=== PATIENT | male | born 1965 | race Caucasian/White ===

== ENCOUNTER 2023-03-21 12:50 | Outpatient (OUT) | payer MEDICARE, MEDICAID, SELFPAY ==
[2023-03-21 14:31] LABS: INR 0.97; Prothrombin Time 10.3 sec (9.0-11.6)
== END 2023-03-21 12:51 | disposition home or self-care (01) ==
LOC: PST 12:55
PROVIDERS: Visit Provider Urology
DX: Z01.812 Encounter for preprocedural laboratory examination (principal); I25.10 Atherosclerotic heart disease of native coronary artery without angina pectoris; F32.A Depression, unspecified; I10 Essential (primary) hypertension; N20.1 Calculus of ureter
CPT/HCPCS: 36415; 85610; 85730

== ENCOUNTER 2023-03-22 10:56 | Day surgery (SDC) | payer MEDICARE, MEDICAID, SELFPAY ==
[2023-03-21 15:51] VITALS: BP 150/102; PULSE 67; RESP 20; TEMP 36.2; O2SAT 100; BMI 34.5
[2023-03-22] VITALS (11 sets, daily range): BP systolic 132–155; BP diastolic 78–105; PULSE 65–80; RESP 10–20; TEMP 36.2; O2SAT 94–100; BMI 33.6
[2023-03-22] MEDS: LACTATED RINGER'S SOLUTION 1,000 ML 50 ML IV ×2 (11:24→15:30)
[2023-03-22] MEDS: CEFAZOLIN SODIUM/DEXTROSE,ISO 1 GM/50 ML IV.SOLN IV (13:41)
--- NOTE | 2023-03-22 15:21 | PM.URSON ---
Urology Surgery Operative Note Operative Note Procedure Date: 03/22/23 Time Out Performed: yes Pre-op Diagnosis: retained 3 mm right ureteral calculus Post-op Diagnosis: other (same plus impacted ureteral calculus and right ureteral stricture) Procedures performed: #1. Cystoscopy. #2. Right rigid ureteral dilation. #3. Right ureteroscopy. #4. Holmium laser lithotripsy of right ureteral calculus. #5. Stone basket extraction. #6. Right pyeloscopy. #7. Holmium laser lithotripsy of right renal calculus. #8. Placement of 6 [place] variable lenngth right ureteral stent. Anesthesia: General-LMA Primary Surgeon: Cirilo Collier Complications: none Estimated blood loss (mL): 5 Findings: #1. Impacted right ureteral calculus. #2.right ureteral stricture at L3.#3. Ureteral jag stone Specimens: right ureteral calculus Indications for Procedures: this gentleman has had a 3 mm right ureteral calculus that he has been unable to pass for several weeks. He now presents for cystoscopy right stent placement and possible definitive stone manipulation. He has signed an informed consent for these procedures after risks were explained. He understands some of these risks are bleeding, infection, anesthesia, damage to the ureter, risk of ureteral stricture and possible need for further procedures just to name a few. Detailed description of Procedure: The patient was brought to the operating room and placed on the operating room table in the supine position. SCDs were placed on the lower extremities and turned on and functioning during the entire case. Timeout was done by all parties in the room. We all agreed upon the patient's identification and the planned procedures for this patient. Genn. anesthesia was then administered. The patient was then repositioned into the modified dorsal lithotomy position. All pressure points were satisfactorily padded. Genitalia were sterilely prepped and draped in usual fashion.I started by passing a 22 [place] Olympus cystoscope per urethra and into the bladder. Anterior urethra was normal. Prostatic urethra had a high median lobe. Panendoscopy in the bladder showed no evidence of any tumors or stones. I then passed a Glidewire through the scope and cannulated the right ureter. The wire went up and did arrived at the visible stone by fluoroscopy which was located at the L3 level. I was able to get the wire beyond the stone into the kidney. I then used a 8 and 10 [place] rigid dilator to dilate the distal ureter. I then removed the cystoscope and passed a navigator 06/18 ureteral access sheath over the wire and further dilated the ureter. I was able to get this sheath up to the L5 level.the wire and stylette were then removed. I then passed a flexible ureteroscope through the sheath and got into the ureter. I ascended up to the stone. One could see that the stone was a jag stone with a pointed Horn protruding laterally and actually tearing into the ureteral wall. Another pointed Horn was protruding to the [place] and similarly tearing into the wall of the ureter. I then passed a 200 ? holmium laser fiber through the scope and made contact with the stone. At 6 W continuous, I then slowly in a staccato manner fragmented the stone into a few pieces. I then used a 0 tip nitinol basket and engaged pieces and extracted them down and out. These were sent for stone analysis. There was a stricture within the ureter immediately distal to the stone. I was able to get the ureteroscope through this but this was a bit indurated. I then scoped proximally and into the kidney and found another stone which was at least a centimeter in size. I used the laser and I dusted this stone. A guidewire was passed through the scope into the kidney and the scope was removed. The access sheath was then removed. I then backloaded the cystoscope over the wire and passed it into the bladder. I then slid a 6 [place] variable length ureteral stent over the wire and up into the kidney. The wire was removed and there were good curls in the kidney and in the bladder. The bladder was drained of its contents and the scope was then removed. He was then transferred to a [facility] bed and wheeled to PACU in stable condition. He'll be discharged to home later today with a prescription for Vesicare and Keflex. The stent will stay in for at least 3 weeks.
[2023-03-22] MEDS: SOLIFENACIN SUCCINATE 10 MG TABLET PO (16:00)
[2023-04-02 18:07] LABS: Calcium Oxalate Monohydrate 30 % (.); Calcium phosphate (hydroxyl) 70 % (.)
== END 2023-03-22 16:40 | disposition home or self-care (01) ==
PROVIDERS: Visit Provider Urology
PROC: (CPT 918; principal; 2023-03-22 11:50)
DX: N20.1 Calculus of ureter (principal); I25.10 Atherosclerotic heart disease of native coronary artery without angina pectoris; I10 Essential (primary) hypertension; F32.A Depression, unspecified; N40.1 Benign prostatic hyperplasia with lower urinary tract symptoms; E66.9 Obesity, unspecified; Z68.33 Body mass index [BMI] 33.0-33.9, adult; G47.33 Obstructive sleep apnea (adult) (pediatric); N41.9 Inflammatory disease of prostate, unspecified; N48.9 Disorder of penis, unspecified; N32.81 Overactive bladder
CPT/HCPCS: 52356; 76000; 82365; 99999; C1874; J2704

== ENCOUNTER 2023-11-28 12:05 | Outpatient (OUT) | payer MEDICARE, MEDICAID, SELFPAY ==
--- NOTE | 2023-11-28 12:12 | XR_ITS ---
The [address] [address] Patient Name: JAPSAL ROWLEY MRN: [id number] date: 1965 Sex: M Assigned Patient Location: [facility] Current Patient Location: Accession/Order Number: [id number] Exam Date: 11/28/2023 12:15 Report Date: 11/29/2023 07:28 At the request of: ANDREW WAGONER Procedure: XR abdomen 1V EXAMINATION: XR abdomen 1V HISTORY: calculus of kidney N20.0 ; right flank abdominal pain; history of kidney stones COMPARISON: XR pelvis 05/20/2018 FINDINGS: KIDNEY/URETER - RIGHT: No visible renal or ureteral calcifications. KIDNEY/URETER - LEFT: No visible renal or ureteral calcifications. PELVIS: No visible ureteral stones. Stable small calcification within lower left pelvis compatible with a phlebolith. BOWEL: No abnormal dilation or deviation. BONES: Stable, chronic bone beaking along right cephalad margin of pubis symphysis. Multilevel moderate-marked degenerative disc disease of lumbar spine. OTHER: Negative. No abnormal gaseous collections. XR/XR abdomen 1V IMPRESSION: 1. No appreciable urinary tract calculi. Electronically authenticated by: DEIDRE OLIVAS Date: 11/29/2023 07:28
== END 2023-11-28 12:06 | disposition home or self-care (01) ==
LOC: RAD 12:07
PROVIDERS: Visit Provider Urology
DX: N20.0 Calculus of kidney (principal)
CPT/HCPCS: 74018

== ENCOUNTER 2024-02-04 13:56 | Outpatient (OUT) | payer MEDICARE, MEDICAID, SELFPAY ==
--- NOTE | 2024-02-04 15:29 | PM.CN ---
Consult Note: HPI Data of Consult Patient: new to practice Consult date: 02/04/24 Requesting Physician: Sharon Bates MD Primary Care Provider: Non-Staff Physician, Consult Narrative Reason for consult: low back, right leg pain Narrative: 58yom who presents for evaluation. longstanding history of low back and right leg pain. imaging reviewed, which is significant for multilevel moderate to severe stenosis, from L2 down to S1. also multilevel facet arthropathy noted. has completed physical therapy and continues in provider directed home exercise program >6 weeks, without lasting benefit. uses baclofen, diclofenac. allergic to many different medications, including gabapentin. cc:: CC: Sharon Bates MD Review of Systems ROS Status of ROS 10 or more systems reviewed and unremarkable except as noted in history and below [facility] Medical History Carpal tunnel syndrome ?G56.00 - Carpal tunnel syndrome, unspecified upper limb (ICD-10) Syncope ?R55 - Syncope and collapse (ICD-10) Left knee pain ?M25.562 - Pain in left knee (ICD-10) Left foot pain ?M79.672 - Pain in left foot (ICD-10) Cold sweat ?R68.89 - Other general symptoms and signs (ICD-10) Ureteral stone ?N20.1 - Calculus of ureter (ICD-10) Tendon nodule ?M67.90 - Unspecified disorder of synovium and tendon, unspecified site (ICD-10) Smoker ?F17.200 - Nicotine dependence, unspecified, uncomplicated (ICD-10) Restless leg ?G25.81 - Restless legs syndrome (ICD-10) Rectal bleeding ?K62.5 - Hemorrhage of anus and rectum (ICD-10) Prostatitis ?N41.9 - Inflammatory disease of prostate, unspecified (ICD-10) Penile lump ?N48.89 - Other specified disorders of penis (ICD-10) Penile lesion ?N48.9 - Disorder of penis, unspecified (ICD-10) SAMANTHA (obstructive sleep apnea) ?G47.33 - Obstructive sleep apnea (adult) (pediatric) (ICD-10) Orchitis ?N45.2 - Orchitis (ICD-10) Obesity ?E66.9 - Obesity, unspecified (ICD-10) OAB (overactive bladder) ?N32.81 - Overactive bladder (ICD-10) Nightmares ?F51.5 - Nightmare disorder (ICD-10) Nausea and vomiting after administration of anesthetic agent ?T88.59XA - Other complications of anesthesia, initial encounter (ICD-10) ?R11.2 - Nausea with vomiting, unspecified (ICD-10) Multiple lipomas ?D17.9 - Benign lipomatous neoplasm, unspecified (ICD-10) Major depressive disorder ?F32.9 - Major depressive disorder, single episode, unspecified (ICD-10) Lumbar pain ?M54.50 - Low back pain, unspecified (ICD-10) PTSD (post-traumatic stress disorder) ?F43.10 - Post-traumatic stress disorder, unspecified (ICD-10) Left shoulder pain ?M25.512 - Pain in left shoulder (ICD-10) Right knee DJD ?M17.11 - Unilateral primary osteoarthritis, right knee (ICD-10) Left knee DJD ?M17.12 - Unilateral primary osteoarthritis, left knee (ICD-10) Kidney stones ?N20.0 - Calculus of kidney (ICD-10) Irritable bowel ?K58.9 - Irritable bowel syndrome without diarrhea (ICD-10) Insomnia ?G47.00 - Insomnia, unspecified (ICD-10) Gross hematuria ?R31.0 - Gross hematuria (ICD-10) Abdominal pain ?R10.9 - Unspecified abdominal pain (ICD-10) Fall ?W19.XXXA - Unspecified fall, initial encounter (ICD-10) Erectile dysfunction ?N52.9 - Male erectile dysfunction, unspecified (ICD-10) Diverticulosis ?K57.90 - Diverticulosis of intestine, part unspecified, without perforation or abscess without bleeding (ICD-10) CAD (coronary artery disease) ?I25.10 - Atherosclerotic heart disease of [place] coronary artery without angina pectoris (ICD-10) Constipation ?K59.00 - Constipation, unspecified (ICD-10) Colon polyp ?K63.5 - Polyp of colon (ICD-10) Heartburn ?R12 - Heartburn (ICD-10) CKD (chronic kidney disease) ?N18.9 - Chronic kidney disease, unspecified (ICD-10) GERD (gastroesophageal reflux disease) ?K21.9 - Gastro-esophageal reflux disease without esophagitis (ICD-10) Chest pain ?R07.9 - Chest pain, unspecified (ICD-10) Cervical disc disorder ?M50.90 - Cervical disc disorder, unspecified, unspecified cervical region (ICD-10) Bloating ?R14.0 - Abdominal distension (gaseous) (ICD-10) Hypertension ?I10 - Essential (primary) hypertension (ICD-10) Basal cell carcinoma ?C44.91 - Basal cell carcinoma of skin, unspecified (ICD-10) Surgical History History of uvulopalatopharyngoplasty ?Z98.890 - Other specified postprocedural states (ICD-10) History of total knee arthroplasty ?Z96.659 - Presence of unspecified artificial knee joint (ICD-10) H/O cystoscopy ?Z98.890 - Other specified postprocedural states (ICD-10) H/O arthroscopy of shoulder ?Z98.890 - Other specified postprocedural states (ICD-10) History of arthroscopic knee surgery ?Z98.890 - Other specified postprocedural states (ICD-10) History of heart artery stent ?Z95.5 - Presence of coronary angioplasty implant and graft (ICD-10) H/O colonoscopy ?Z98.890 - Other specified postprocedural states (ICD-10) H/O esophagogastroduodenoscopy ?Z98.890 - Other specified postprocedural states (ICD-10) Family History Other Family history of CHF (congestive heart failure) Family history of COPD (chronic obstructive pulmonary disease) Family history of cancer Family history of diabetes mellitus Family history of hypertension Family history of myocardial infarction Family history of stroke Social History (Updated 03/21/23 @ 13:18 by Linnea Man RN) Within the past year, how often did you have a drink containing alcohol: monthly or less Within the past year, how many standard drinks containing alcohol did you have on a typical day: 1 or 2 Total score: 0 Score interpretation: A score less than 4 is consistent with normal alcohol consumption. Smoking status: Heavy tobacco smoker Second hand tobacco smoke exposure: Yes Non-prescribed substance use: cannabis (any form) Non-prescribed substance use details: MARIJUANA WEEKLY Previous occupational history: DISABILITY Known occupational exposures/hazards: No Highest level of school completed/degree received: high school graduate Meds Home Medications and Allergies Home Medications ?Medication ?Instructions ?Recorded ?Confirmed ?Type Fiber-Tabs 1 tab PO BID 03/21/23 03/22/23 History amoxicillin 500 mg capsule 500 mg PO QID 03/21/23 03/22/23 History aspirin 81 mg tablet 81 mg PO DAILY 03/21/23 03/22/23 History carvedilol 25 mg tablet 25 mg PO BID 03/21/23 03/22/23 History dexlansoprazole 60 mg 60 mg PO DAILY 03/21/23 03/22/23 History capsule,biphase delayed release (Dexilant) diclofenac sodium 50 mg 50 mg PO BID 03/21/23 03/22/23 History tablet,delayed release dicyclomine 10 mg capsule 10 mg PO QID PRN pain 03/21/23 03/22/23 History ginseng 100 mg capsule 100 mg PO DAILY 03/21/23 03/22/23 History irbesartan 300 mg tablet (Avapro) 300 mg PO DAILY 03/21/23 03/22/23 History mirabegron 25 mg tablet,extended 25 mg PO DAILY 03/21/23 03/22/23 History release 24 hr (Myrbetriq) multivitamin,db-xrnm-Bf-FA-min 1 tab PO DAILY 03/21/23 03/22/23 History nitroglycerin 0.4 mg sublingual 0.4 mg sublingual Q5M 03/21/23 03/22/23 History tablet omega-3 fatty acids 1,000 mg PO DAILY 03/21/23 03/22/23 History ondansetron HCl 4 mg tablet 4 mg PO Q8H PRN nausea and vomiting 03/21/23 03/22/23 History ranolazine 500 mg tablet,extended 500 mg PO BID 03/21/23 03/22/23 History release,12 hr ropinirole 0.5 mg tablet 0.5 mg PO DAILY 03/21/23 03/22/23 History tamsulosin 0.4 mg capsule 0.4 mg PO DAILY 03/21/23 03/22/23 History vitamin E 268 mg (400 unit) capsule 268 mg PO DAILY 03/21/23 03/22/23 History cephalexin 500 mg capsule 500 mg PO DAILY 30 days #30 caps 03/22/23 Rx solifenacin 10 mg tablet (Vesicare) 10 mg PO DAILY #30 tabs 03/22/23 Rx Allergies Allergy/AdvReac Type Severity Reaction Status Date / Time bupropion [From Wellbutrin] AdvReac Mild UNKNOWN Verified 03/21/23 13:24 hydralazine AdvReac Mild DIARRHEA Verified 03/21/23 13:24 isosorbide [From Imdur] AdvReac Mild HEADACHE Verified 03/21/23 13:24 morphine AdvReac Mild Headache Verified 03/21/23 13:24 DILAUDID AdvReac Mild NAUSEA AND Uncoded 03/21/23 13:24 VOMITING RED DYE AdvReac Mild GI DISTRESS Uncoded 03/21/23 13:24 VICODIN AdvReac Mild DIAPHORESIS Uncoded 03/21/23 13:24 Exam Narrative Exam Narrative: Psych-alert and oriented x 3. Attentive and appropriate, constitutionally normal, displays normal mood and affect per situation. There are no obvious deficits in memory, reasoning, or intellect.? Skin-no obvious rashes, bruising, erythema noted to the patient's area of pain.? Extremities- extremities are warm with minimal edema and palpable pulses. Lumbar-tenderness to palpation noted in the lumbar spine and paraspinal musculature. Pain is elicited with flexion, extension, and lateral rotation of the lumbar spine. Range of motion is diminished with these motions. Facet loading maneuvers are positive.? Strength-noted to be unremarkable with the exception of decreased strength rated at 4 out of 5 in right quadriceps femoris, anterior tibialis. Sensory-no notable sensory deficits in the bilateral lower extremities to touch or pinprick in all dermatomal distributions with the exception to decreased sensation to the right L2, 3, 4, 5 dermatomal distribution Coordination remains intact.? Gait remains non-antalgic. Assessment and Plan Assessment and Plan (1) Lumbar stenosis with neurogenic claudication: (2) Lumbar spondylosis: Plan 58yom who presents for evaluation. failed conservative measures, as noted. imaging reviewed, as noted. given symptoms and imaging, prudent to attempt right l4-5, l5-s1 transforaminal epidural steroid injection under fluoroscopic guidance. may even benefit from right l2-3, l3-4 transforaminal epidural steroid injection, depending on response. he is in agreement. meds reviewed, no changes. endorses marijuana use. follow up after procedure.
== END 2024-02-04 13:57 | disposition home or self-care (01) ==
LOC: PM 13:56
PROVIDERS: Visit Provider Anesthesiology
DX: M48.062 Spinal stenosis, lumbar region with neurogenic claudication (principal); M47.816 Spondylosis without myelopathy or radiculopathy, lumbar region
CPT/HCPCS: G0463

== ENCOUNTER 2024-02-25 10:21 | Day surgery (SDC) | payer MEDICARE, MEDICAID, SELFPAY ==
[2024-02-25 11:12] VITALS: BP 139/95; PULSE 79; TEMP 36.4; O2SAT 99
[2024-02-25 11:39] VITALS: BP 145/73; PULSE 77; O2SAT 93
[2024-02-25 11:41] VITALS: BP 152/85; PULSE 80; O2SAT 95
--- NOTE | 2024-02-25 11:42 | P.ON_ITS ---
Date of procedure: 02/25/24 Pre-op diagnosis: Pain due to lumbar stenosis with neurogenic claudication Post-op diagnosis: same as pre-op Procedure: Procedure: Right L4-5, L5-S1 transforaminal epidural steroid injection Medications: Bupivacaine 0.25% 2cc, lidocaine 2% 1cc, kenalog 80mg The patient was seen and examined in the preoperative holding area.? Informed consent was obtained and placed on the chart.? Patient was brought to the medical procedure unit and placed in the prone position where a timeout was completed verifying the correct patient, procedure site, position, and planned special equipment using sterile aseptic technique.? Under direct fluoroscopic visualization a 25-gauge Qu[place]ke tipped spinal needle was advanced to the designated neural foramen where contrast dye was injected to show adequate spread.? The needle was inserted at level right L4-5. There was no evidence of vascular or adverse uptake.? Epidural spread was appreciated.? The above- mentioned injectate was then placed in a 1.5 mL aliquot preceded by negative aspiration.? The needle was removed. The needle was inserted and the procedure repeated at level right L5-S1.? The surgery site was covered.? Patient was taken to the postprocedural recovery area and monitored for an appropriate length of time before found suitable for discharge in the accompaniment of a responsible adult. Anesthesia: Local Surgeon: Sharon Bates Pathology: none sent Condition: stable Disposition: no change
[2024-02-25] MEDS: BUPIVACAINE HCL 0.25% PF 25 MG/10 ML VIAL INJ (11:43)
[2024-02-25] MEDS: 0.9 % SODIUM CHLORIDE 10 ML SYRINGE - SALINE FLUSH INJ (11:43)
[2024-02-25] MEDS: LIDOCAINE HCL 2% 400 MG/20 ML MDV 3 ML INJ (11:44)
[2024-02-25] MEDS: IOHEXOL 240 MG/ML - 10 ML VIAL 24 MG INJ (11:44)
[2024-02-25] MEDS: TRIAMCINOLONE ACETONIDE 40 MG/ML VIAL 80 MG INJ (11:44)
== END 2024-02-25 11:47 | disposition home or self-care (01) ==
PROVIDERS: Visit Provider Anesthesiology
DX: M48.062 Spinal stenosis, lumbar region with neurogenic claudication (principal); R52 Pain, unspecified
CPT/HCPCS: 64483; 64484; J0665; J3301; Q9966

== ENCOUNTER 2024-03-06 14:42 | Outpatient (OUT) | payer MEDICARE, MEDICAID, SELFPAY ==
--- NOTE | 2024-03-06 15:56 | P.CN_ITS ---
Consult Note: HPI Data of Consult Patient: known to practice within the last 3 years Consult date: 02/04/24 Requesting Physician: Liza Schumacher NP Primary Care Provider: Non-Staff Physician, Consult Narrative Reason for consult: low back, right leg pain Narrative: 58yom who presents for evaluation. longstanding history of low back and right leg pain. imaging reviewed, which is significant for multilevel moderate to severe stenosis, from L2 down to S1. also multilevel facet arthropathy noted. has completed physical therapy and continues in provider directed home exercise program >6 weeks, without lasting benefit. uses baclofen, diclofenac. allergic to many different medications, including gabapentin. Recent right L4/5 L5/S1 TFESI providing no relief. cc:: CC: Liza Schumacher NP Review of Systems ROS Status of ROS 10 or more systems reviewed and unremark able except as noted in history and below Musculoskeletal Reports: back pain, neck pain and extremity pain PFSH [facility] Medical History (Updated 02/04/24 @ 15:32 by Sharon Bates MD) Carpal tunnel syndrome ?G56.00 - Carpal tunnel syndrome, unspecified upper limb (ICD-10) Syncope ?R55 - Syncope and collapse (ICD-10) Left knee pain ?M25.562 - Pain in left knee (ICD-10) Left foot pain ?M79.672 - Pain in left foot (ICD-10) Cold sweat ?R68.89 - Other general symptoms and signs (ICD-10) Ureteral stone ?N20.1 - Calculus of ureter (ICD-10) Tendon nodule ?M67.90 - Unspecified disorder of synovium and tendon, unspecified site (ICD- 10) Smoker ?F17.200 - Nicotine dependence, unspecified, uncomplicated (ICD-10) Restless leg ?G25.81 - Restless legs syndrome (ICD-10) Rectal bleeding ?K62.5 - Hemorrhage of anus and rectum (ICD-10) Prostatitis ?N41.9 - Inflammatory disease of prostate, unspecified (ICD-10) Penile lump ?N48.89 - Other specified disorders of penis (ICD-10) Penile lesion ?N48.9 - Disorder of penis, unspecified (ICD-10) SAMANTHA (obstructive sleep apnea) ?G47.33 - Obstructive sleep apnea (adult) (pediatric) (ICD-10) Orchitis ?N45.2 - Orchitis (ICD-10) Obesity ?E66.9 - Obesity, unspecified (ICD-10) OAB (overactive bladder) ?N32.81 - Overactive bladder (ICD-10) Nightmares ?F51.5 - Nightmare disorder (ICD-10) Nausea and vomiting after administration of anesthetic agent ?T88.59XA - Other complications of anesthesia, initial encounter (ICD-10) ?R11.2 - Nausea with vomiting, unspecified (ICD-10) Multiple lipomas ?D17.9 - Benign lipomatous neoplasm, unspecified (ICD-10) Major depressive disorder ?F32.9 - Major depressive disorder, single episode, unspecified (ICD-10) Lumbar pain ?M54.50 - Low back pain, unspecified (ICD-10) PTSD (post-traumatic stress disorder) ?F43.10 - Post-traumatic stress disorder, unspecified (ICD-10) Left shoulder pain ?M25.512 - Pain in left shoulder (ICD-10) Right knee DJD ?M17.11 - Unilateral primary osteoarthritis, right knee (ICD-10) Left knee DJD ?M17.12 - Unilateral primary osteoarthritis, left knee (ICD-10) Kidney stones ?N20.0 - Calculus of kidney (ICD-10) Irritable bowel ?K58.9 - Irritable bowel syndrome without diarrhea (ICD-10) Insomnia ?G47.00 - Insomnia, unspecified (ICD-10) Gross hematuria ?R31.0 - Gross hematuria (ICD-10) Abdominal pain ?R10.9 - Unspecified abdominal pain (ICD-10) Fall ?W19.XXXA - Unspecified fall, initial encounter (ICD-10) Erectile dysfunction ?N52.9 - Male erectile dysfunction, unspecified (ICD-10) Diverticulosis ?K57.90 - Diverticulosis of intestine, part unspecified, without perforation or abscess without bleeding (ICD-10) CAD (coronary artery disease) ?I25.10 - Atherosclerotic heart disease of [place] coronary artery without angina pectoris (ICD-10) Constipation ?K59.00 - Constipation, unspecified (ICD-10) Colon polyp ?K63.5 - Polyp of colon (ICD-10) Heartburn ?R12 - Heartburn (ICD-10) CKD (chronic kidney disease) ?N18.9 - Chronic kidney disease, unspecified (ICD-10) GERD (gastroesophageal reflux disease) ?K21.9 - Gastro-esophageal reflux disease without esophagitis (ICD-10) Chest pain ?R07.9 - Chest pain, unspecified (ICD-10) Cervical disc disorder ?M50.90 - Cervical disc disorder, unspecified, unspecified cervical region (ICD-10) Bloating ?R14.0 - Abdominal distension (gaseous) (ICD-10) Hypertension ?I10 - Essential (primary) hypertension (ICD-10) Basal cell carcinoma ?C44.91 - Basal cell carcinoma of skin, unspecified (ICD-10) Surgical History H/O carpal tunnel repair ?Z98.890 - Other specified postprocedural states (ICD-10) H/O cervical spine surgery ?Z98.890 - Other specified postprocedural states (ICD-10) History of uvulopalatopharyngoplasty ?Z98.890 - Other specified postprocedural states (ICD-10) History of total knee arthroplasty ?Z96.659 - Presence of unspecified artificial knee joint (ICD-10) H/O cystoscopy ?Z98.890 - Other specified postprocedural states (ICD-10) H/O arthroscopy of shoulder ?Z98.890 - Other specified postprocedural states (ICD-10) History of arthroscopic knee surgery ?Z98.890 - Other specified postprocedural states (ICD-10) History of heart artery stent ?Z95.5 - Presence of coronary angioplasty implant and graft (ICD-10) H/O colonoscopy ?Z98.890 - Other specified postprocedural states (ICD-10) H/O esophagogastroduodenoscopy ?Z98.890 - Other specified postprocedural states (ICD-10) Family History Other Family history of CHF (congestive heart failure) Family history of COPD (chronic obstructive pulmonary disease) Family history of cancer Family history of diabetes mellitus Family history of hypertension Family history of myocardial infarction Family history of stroke Social History Within the past year, how often did you have a drink containing alcohol: monthly or less Within the past year, how many standard drinks containing alcohol did you have on a typical day: 1 or 2 Total score: 0 Score interpretation: A score less than 4 is consistent with normal alcohol consumption. Smoking status: Heavy tobacco smoker Second hand tobacco smoke exposure: Yes Non-prescribed substance use: cannabis (any form) Non-prescribed substance use details: MARIJUANA WEEKLY Previous occupational history: DISABILITY Known occupational exposures/hazards: No Highest level of school completed/degree received: high school graduate Meds Home Medications and Allergies Home Medications ?Medication ?Instructions ?Recorded ?Confirmed ?Type amoxicillin 500 mg capsule 500 mg PO QID 03/21/23 02/25/24 History aspirin 81 mg tablet 81 mg PO DAILY 03/21/23 02/25/24 History carvedilol 25 mg tablet 12.5 mg PO BID 03/21/23 02/25/24 History ginseng 100 mg capsule 200 mg PO DAILY 03/21/23 02/25/24 History multivitamin,li-slty-Gu-FA-min 1 tab PO DAILY 03/21/23 02/25/24 History nitroglycerin 0.4 mg sublingual 0.4 mg sublingual Q5M 03/21/23 02/25/24 History tablet omega-3 fatty acids 1,000 mg PO DAILY 03/21/23 02/25/24 History ranolazine 500 mg tablet,extended 500 mg PO BID 03/21/23 02/25/24 History release,12 hr baclofen 20 mg tablet 20 mg PO DAILY PRN spasms 02/06/24 02/25/24 History esomeprazole magnesium 40 mg mg 02/06/24 History capsule,delayed release gemfibrozil 600 mg tablet 300 mg PO DAILY 02/06/24 02/25/24 History irbesartan 150 mg tablet (Avapro) 150 mg PO BID 02/06/24 02/25/24 History meclizine 25 mg capsule 25 mg PO BID 02/06/24 02/25/24 History oxycodone 5 mg tablet mg 02/06/24 History potassium chloride 10 mEq 10 meq PO DAILY 02/06/24 02/25/24 History tablet,extended release (Klor-Con) ropinirole 1 mg tablet 1 mg PO .hs 02/06/24 02/25/24 History valacyclovir 500 mg tablet 500 mg PO DAILY 02/06/24 02/25/24 History Allergies Allergy/AdvReac Type Severity Reaction Status Date / Time bupropion [From Wellbutrin] AdvReac Mild UNKNOWN Verified 02/25/24 11:08 hydralazine AdvReac Mild DIARRHEA Verified 02/25/24 11:08 isosorbide [From Imdur] AdvReac Mild HEADACHE Verified 02/25/24 11:08 morphine AdvReac Mild Headache Verified 02/25/24 11:08 paroxetine [From Paxil] AdvReac Mild Unknown Verified 02/25/24 11:08 sertraline [From Zoloft] AdvReac Mild Unknown Verified 02/25/24 11:08 DILAUDID AdvReac Mild NAUSEA AND Uncoded 02/25/24 11:08 VOMITING RED DYE AdvReac Mild GI DISTRESS Uncoded 02/25/24 11:08 VICODIN AdvReac Mild DIAPHORESIS Uncoded 02/25/24 11:08 Exam Narrative Exam Narrative: Psych-alert and oriented x 3. Attentive and appropriate, constitutionally normal, displays normal mood and affect per situation. There are no obvious deficits in memory, reasoning, or intellect.? Skin-no obvious rashes, bruising, erythema noted to the patient's area of pain.? Extremities- extremities are warm with minimal edema and palpable pulses. Lumbar-tenderness to palpation noted in the lumbar spine and paraspinal musculature. Pain is elicited with flexion, extension, and lateral rotation of the lumbar spine. Range of motion is diminished with these motions. Facet loading maneuvers are positive.? Strength-noted to be unremarkable with the exception of decreased strength rated at 4 out of 5 in right quadriceps femoris, anterior tibialis. Sensory-no notable sensory deficits in the bilateral lower extremities to touch or pinprick in all dermatomal distributions with the exception to decreased sensation to the right L2, 3, 4, 5 dermatomal distribution Coordination remains intact.? Gait remains non-antalgic. Results Additional Findings Additional findings: If on a controlled substance or opioids, I have checked an [place] report on this patient and there are no aberrancies noted in the prescribing history.??If on a controlled substance or opioid a drug screen was completed and reviewed within the last year, and if there has not been a drug screen completed we ordered one today to monitor higher risk, state monitored pain medication use. As part of providing excellent, safe, comprehensive care, the following was completed at our patient's visit: 1. A medication reconciliation and review to ensure accurate knowledge of current/active medications, including asking our patients to inform us about any duiz-sue-aayxbde medications or herbal remedies/nutritional supplements/a lternative remedies. 2. A review to specifically ensure our patients have had annual screening for screening for depression, screening for tobacco use, and screening for unhealthy alcohol use. For concerning screenings had a discussion with the patient, provided patient education, and recommended follow-up with primary care provider when appropriate. If patient noted with a risk of falling, they received education on strength, gait, and balance training to prevent future risk of falling. Assessment and Plan Assessment and Plan (1) Lumbar stenosis with neurogenic claudication: (2) Lumbar spondylosis: Plan 58yom who presents for evaluation. failed conservative measures, as noted. imaging reviewed, as noted. given symptoms and imaging, prudent to attempt right l2-3, l3-4 transforaminal epidural steroid injection. he is in agreement. meds reviewed, no changes. endorses marijuana use. consider SCS in the future. follow up after procedure.
== END 2024-03-06 14:43 | disposition home or self-care (01) ==
LOC: PM 14:42
PROVIDERS: Visit Provider Nurse Practitioner
DX: M48.062 Spinal stenosis, lumbar region with neurogenic claudication (principal); M47.816 Spondylosis without myelopathy or radiculopathy, lumbar region
CPT/HCPCS: G0463

== ENCOUNTER 2024-04-21 09:59 | Day surgery (SDC) | payer MEDICARE, MEDICAID, SELFPAY ==
[2024-04-21 10:16] VITALS: BP 138/100; PULSE 78; TEMP 36.6; O2SAT 99
[2024-04-21 10:39] VITALS: BP 134/65; PULSE 76; O2SAT 95
[2024-04-21 10:43] VITALS: BP 134/85; PULSE 70; O2SAT 95
--- NOTE | 2024-04-21 10:43 | P.ON_ITS ---
Date of procedure: 04/21/24 Pre-op diagnosis: Pain due to lumbar stenosis with neurogenic claudication Post-op diagnosis: same as pre-op Procedure: Procedure: Right L2-3, L3-4 transforaminal epidural steroid injection Medications: Bupivacaine 0.25% 2cc, lidocaine 2% 1cc, dexamethasone 10mg The patient was seen and examined in the preoperative holding area.? Informed consent was obtained and placed on the chart.? Patient was brought to the medical procedure unit and placed in the prone position where a timeout was completed verifying the correct patient, procedure site, position, and planned special equipment using sterile aseptic technique.? Under direct fluoroscopic visualization a 25-gauge Quincke tipped spinal needle was advanced to the designated neural foramen where contrast dye was injected to show adequate spread.? The needle was inserted at level right L2-3. There was no evidence of vascular or adverse uptake.? Epidural spread was appreciated.? The above- mentioned injectate was then placed in a 1.5 mL aliquot preceded by negative aspiration.? The needle was removed. The needle was inserted and the procedure repeated at level right L3-4.? The surgery site was covered.? Patient was taken to the postprocedural recovery area and monitored for an appropriate length of time before found suitable for discharge in the accompaniment of a responsible adult. Anesthesia: Local Surgeon: Sharon Bates Pathology: none sent Condition: stable Disposition: no change
[2024-04-21] MEDS: BUPIVACAINE HCL 0.25% PF 25 MG/10 ML VIAL INJ (10:45)
[2024-04-21] MEDS: DEXAMETHASONE SOD PHOS 10 MG/ML VIAL INJ (10:45)
[2024-04-21] MEDS: 0.9 % SODIUM CHLORIDE 10 ML SYRINGE - SALINE FLUSH INJ (10:45)
[2024-04-21] MEDS: IOHEXOL 240 MG/ML - 10 ML VIAL 12 MG INJ (10:46)
[2024-04-21] MEDS: LIDOCAINE HCL 2% 400 MG/20 ML MDV 2.5 ML INJ (10:46)
== END 2024-04-21 10:49 | disposition home or self-care (01) ==
LOC: SURGOUT 10:00
PROVIDERS: Visit Provider Anesthesiology
DX: M48.062 Spinal stenosis, lumbar region with neurogenic claudication (principal)
CPT/HCPCS: 64483; 64484; J0665; J1100; Q9966

== ENCOUNTER 2024-04-30 11:22 | Outpatient (OUT) | payer MEDICARE, MEDICAID, SELFPAY ==
--- NOTE | 2024-04-30 11:51 | PM.CN ---
Consult Note: HPI Data of Consult Patient: known to practice within the last 3 years Consult date: 02/04/24 Requesting Physician: Liza Schumacher NP Primary Care Provider: Non-Staff Physician, MD Consult Narrative Reason for consult: low back, right leg pain Narrative: 58yom who presents for evaluation. longstanding history of low back and right leg pain. imaging reviewed, which is significant for multilevel moderate to severe stenosis, from L2 down to S1. also multilevel facet arthropathy noted. has completed physical therapy and continues in provider directed home exercise program >6 weeks, without lasting benefit. uses baclofen, diclofenac. allergic to many different medications, including gabapentin. Recent right L2/3 3/4 TFESI providing no relief. cc:: CC: Liza Schumacher NP Review of Systems ROS Status of ROS 10 or more systems reviewed and unremarkable except as noted in history and below Musculoskeletal Reports: back pain and extremity pain PFSH [facility] Medical History Carpal tunnel syndrome ?G56.00 - Carpal tunnel syndrome, unspecified upper limb (ICD-10) Syncope ?R55 - Syncope and collapse (ICD-10) Left knee pain ?M25.562 - Pain in left knee (ICD-10) Left foot pain ?M79.672 - Pain in left foot (ICD-10) Cold sweat ?R68.89 - Other general symptoms and signs (ICD-10) Ureteral stone ?N20.1 - Calculus of ureter (ICD-10) Tendon nodule ?M67.90 - Unspecified disorder of synovium and tendon, unspecified site (ICD-10) Smoker ?F17.200 - Nicotine dependence, unspecified, uncomplicated (ICD-10) Restless leg ?G25.81 - Restless legs syndrome (ICD-10) Rectal bleeding ?K62.5 - Hemorrhage of anus and rectum (ICD-10) Prostatitis ?N41.9 - Inflammatory disease of prostate, unspecified (ICD-10) Penile lump ?N48.89 - Other specified disorders of penis (ICD-10) Penile lesion ?N48.9 - Disorder of penis, unspecified (ICD-10) SAMANTHA (obstructive sleep apnea) ?G47.33 - Obstructive sleep apnea (adult) (pediatric) (ICD-10) Orchitis ?N45.2 - Orchitis (ICD-10) Obesity ?E66.9 - Obesity, unspecified (ICD-10) OAB (overactive bladder) ?N32.81 - Overactive bladder (ICD-10) Nightmares ?F51.5 - Nightmare disorder (ICD-10) Nausea and vomiting after administration of anesthetic agent ?T88.59XA - Other complications of anesthesia, initial encounter (ICD-10) ?R11.2 - Nausea with vomiting, unspecified (ICD-10) Multiple lipomas ?D17.9 - Benign lipomatous neoplasm, unspecified (ICD-10) Major depressive disorder ?F32.9 - Major depressive disorder, single episode, unspecified (ICD-10) Lumbar pain ?M54.50 - Low back pain, unspecified (ICD-10) PTSD (post-traumatic stress disorder) ?F43.10 - Post-traumatic stress disorder, unspecified (ICD-10) Left shoulder pain ?M25.512 - Pain in left shoulder (ICD-10) Right knee DJD ?M17.11 - Unilateral primary osteoarthritis, right knee (ICD-10) Left knee DJD ?M17.12 - Unilateral primary osteoarthritis, left knee (ICD-10) Kidney stones ?N20.0 - Calculus of kidney (ICD-10) Irritable bowel ?K58.9 - Irritable bowel syndrome without diarrhea (ICD-10) Insomnia ?G47.00 - Insomnia, unspecified (ICD-10) Gross hematuria ?R31.0 - Gross hematuria (ICD-10) Abdominal pain ?R10.9 - Unspecified abdominal pain (ICD-10) Fall ?W19.XXXA - Unspecified fall, initial encounter (ICD-10) Erectile dysfunction ?N52.9 - Male erectile dysfunction, unspecified (ICD-10) Diverticulosis ?K57.90 - Diverticulosis of intestine, part unspecified, without perforation or abscess without bleeding (ICD-10) CAD (coronary artery disease) ?I25.10 - Atherosclerotic heart disease of knik coronary artery without angina pectoris (ICD-10) Constipation ?K59.00 - Constipation, unspecified (ICD-10) Colon polyp ?K63.5 - Polyp of colon (ICD-10) Heartburn ?R12 - Heartburn (ICD-10) CKD (chronic kidney disease) ?N18.9 - Chronic kidney disease, unspecified (ICD-10) GERD (gastroesophageal reflux disease) ?K21.9 - Gastro-esophageal reflux disease without esophagitis (ICD-10) Chest pain ?R07.9 - Chest pain, unspecified (ICD-10) Cervical disc disorder ?M50.90 - Cervical disc disorder, unspecified, unspecified cervical region (ICD-10) Bloating ?R14.0 - Abdominal distension (gaseous) (ICD-10) Hypertension ?I10 - Essential (primary) hypertension (ICD-10) Basal cell carcinoma ?C44.91 - Basal cell carcinoma of skin, unspecified (ICD-10) Surgical History H/O carpal tunnel repair ?Z98.890 - Other specified postprocedural states (ICD-10) H/O cervical spine surgery ?Z98.890 - Other specified postprocedural states (ICD-10) History of uvulopalatopharyngoplasty ?Z98.890 - Other specified postprocedural states (ICD-10) History of total knee arthroplasty ?Z96.659 - Presence of unspecified artificial knee joint (ICD-10) H/O cystoscopy ?Z98.890 - Other specified postprocedural states (ICD-10) H/O arthroscopy of shoulder ?Z98.890 - Other specified postprocedural states (ICD-10) History of arthroscopic knee surgery ?Z98.890 - Other specified postprocedural states (ICD-10) History of heart artery stent ?Z95.5 - Presence of coronary angioplasty implant and graft (ICD-10) H/O colonoscopy ?Z98.890 - Other specified postprocedural states (ICD-10) H/O esophagogastroduodenoscopy ?Z98.890 - Other specified postprocedural states (ICD-10) Family History Other Family history of CHF (congestive heart failure) Family history of COPD (chronic obstructive pulmonary disease) Family history of cancer Family history of diabetes mellitus Family history of hypertension Family history of myocardial infarction Family history of stroke Social History Within the past year, how often did you have a drink containing alcohol: monthly or less Within the past year, how many standard drinks containing alcohol did you have on a typical day: 1 or 2 Total score: 0 Score interpretation: A score less than 4 is consistent with normal alcohol consumption. Smoking status: Heavy tobacco smoker Second hand tobacco smoke exposure: Yes Non-prescribed substance use: cannabis (any form) Non-prescribed substance use details: MARIJUANA WEEKLY Previous occupational history: DISABILITY Known occupational exposures/hazards: No Highest level of school completed/degree received: high school graduate Meds Home Medications and Allergies Home Medications ?Medication ?Instructions ?Recorded ?Confirmed ?Type aspirin 81 mg tablet 81 mg PO DAILY 03/21/23 04/21/24 History carvedilol 25 mg tablet 12.5 mg PO BID 03/21/23 04/21/24 History ginseng 100 mg capsule 200 mg PO DAILY 03/21/23 04/21/24 History multivitamin,ur-uyin-Kh-FA-min 1 tab PO DAILY 03/21/23 04/21/24 History nitroglycerin 0.4 mg sublingual 0.4 mg sublingual Q5M 03/21/23 04/21/24 History tablet omega-3 fatty acids 1,000 mg PO DAILY 03/21/23 04/21/24 History ranolazine 500 mg tablet,extended 500 mg PO BID 03/21/23 04/21/24 History release,12 hr baclofen 20 mg tablet 20 mg PO DAILY PRN spasms 02/06/24 04/21/24 History esomeprazole magnesium 40 mg mg 02/06/24 History capsule,delayed release gemfibrozil 600 mg tablet 300 mg PO DAILY 02/06/24 04/21/24 History irbesartan 150 mg tablet (Avapro) 150 mg PO BID 02/06/24 04/21/24 History meclizine 25 mg capsule 25 mg PO BID 02/06/24 04/21/24 History oxycodone 5 mg tablet mg 02/06/24 History potassium chloride 10 mEq 10 meq PO DAILY 02/06/24 04/21/24 History tablet,extended release (Klor-Con) ropinirole 1 mg tablet 1 mg PO .hs 02/06/24 04/21/24 History valacyclovir 500 mg tablet 500 mg PO DAILY 02/06/24 04/21/24 History Allergies Allergy/AdvReac Type Severity Reaction Status Date / Time bupropion [[facility] AdvReac Mild UNKNOWN Verified 04/21/24 10:15 hydralazine AdvReac Mild DIARRHEA Verified 04/21/24 10:15 isosorbide [From Imdur] AdvReac Mild HEADACHE Verified 04/21/24 10:15 morphine AdvReac Mild Headache Verified 04/21/24 10:15 paroxetine [From Paxil] AdvReac Mild Unknown Verified 04/21/24 10:15 sertraline [From Zoloft] AdvReac Mild Unknown Verified 04/21/24 10:15 DILAUDID AdvReac Mild NAUSEA AND Uncoded 04/21/24 10:15 VOMITING RED DYE AdvReac Mild GI DISTRESS Uncoded 04/21/24 10:15 VICODIN AdvReac Mild DIAPHORESIS Uncoded 04/21/24 10:15 Exam Narrative Exam Narrative: Psych-alert and oriented x 3. Attentive and appropriate, constitutionally normal, displays normal mood and affect per situation. There are no obvious deficits in memory, reasoning, or intellect.? Skin-no obvious rashes, bruising, erythema noted to the patient's area of pain.? Extremities- extremities are warm with minimal edema and palpable pulses. Lumbar-tenderness to palpation noted in the lumbar spine and paraspinal musculature. Pain is elicited with flexion, extension, and lateral rotation of the lumbar spine. Range of motion is diminished with these motions. Facet loading maneuvers are positive.? Strength-noted to be unremarkable with the exception of decreased strength rated at 4 out of 5 in right quadriceps femoris, anterior tibialis. Sensory-no notable sensory deficits in the bilateral lower extremities to touch or pinprick in all dermatomal distributions with the exception to decreased sensation to the right L2, 3, 4, 5 dermatomal distribution Coordination remains intact.? Gait remains non-antalgic. Constitutional Documenting provider has reviewed patient's vital signs: yes Common normals: no apparent distress, oriented x3, healthy appearing, alert and well nourished General appearance: cooperative HENMT Common normals: normocephalic, hearing grossly normal bilaterally and moist oral mucous membranes Head and scalp: normocephalic Eye Common normals: PERRL Pupil: PERRL Neck & C-Spine Common normals: full ROM General: normal visual inspection Chest Common normals: inspection of chest normal Respiratory Common normals: normal respiratory effort, no retractions and no use of accessory muscles Neuro Common normals: oriented x3, CN's II-XII intact bilaterally, moves all extremities, no focal motor deficits, no sensory deficits noted and deep tendon reflexes 2+ bilaterally Sensorium/orientation: alert Motor exam: strength 5/5 throughout and no movement abnormalities noted Psych Common normals: mental status grossly normal, thought process normal, cooperative, affect normal, speech normal and activity/motor behavior normal Speech: normal speech Thought process: normal thought process Results Additional Findings Additional findings: If on a controlled substance or opioids, I have checked an [place] report on this patient and there are no aberrancies noted in the prescribing history.??If on a controlled substance or opioid a drug screen was completed and reviewed within the last year, and if there has not been a drug screen completed we ordered one today to monitor higher risk, state monitored pain medication use. As part of providing excellent, safe, comprehensive care, the following was completed at our patient's visit: 1. A medication reconciliation and review to ensure accurate knowledge of current/active medications, including asking our patients to inform us about any [id number] medications or herbal remedies/nutritional supplements/alternative remedies. 2. A review to specifically ensure our patients have had annual screening for screening for depression, screening for tobacco use, and screening for unhealthy alcohol use. For concerning screenings had a discussion with the patient, provided patient education, and recommended follow-up with primary care provider when appropriate. If patient noted with a risk of falling, they received education on strength, gait, and balance training to prevent future risk of falling. Assessment and Plan Assessment and Plan (1) Lumbar stenosis with neurogenic claudication: (2) Lumbar spondylosis: Plan 58yom who presents for evaluation. failed conservative measures, as noted. imaging reviewed, as noted. failed to respond to right L4-5 L5-S1 TFESI and right L2-3 L3-4 TFESI. not interested in gabapentin, lyrica, zonegran or muscle relaxers. NNCP due to marijuana use. declining spinal cord simulator trial. continue f/u with Dr Leone NS
== END 2024-04-30 11:23 | disposition home or self-care (01) ==
LOC: PM 11:23
PROVIDERS: Visit Provider Nurse Practitioner
DX: M48.062 Spinal stenosis, lumbar region with neurogenic claudication (principal); M47.816 Spondylosis without myelopathy or radiculopathy, lumbar region
CPT/HCPCS: G0463